=== PATIENT | female | born 1940 | race Caucasian/White ===

== ENCOUNTER 2018-09-05 16:18 | Inpatient (IN) | payer MEDICARE | END 2018-09-09 13:00 | disposition home health service (06) | LOC: ER 16:18 → MED 3N 09-07 19:02 → ED HOLD 19:37 → PCU 3S 20:50 | PROC: 0JH606Z Insertion of Pacemaker, Dual Chamber into Chest Subcutaneous Tissue and Fascia, Open Approach (ICD-10-PCS; principal; 2018-09-06 15:02) | PROC: 02H63JZ Insertion of Pacemaker Lead into Right Atrium, Percutaneous Approach (ICD-10-PCS; 2018-09-06 15:02) | PROC: 02HK3JZ Insertion of Pacemaker Lead into Right Ventricle, Percutaneous Approach (ICD-10-PCS; 2018-09-06 15:02) | DX: R00.1 Bradycardia, unspecified (principal); I50.23 Acute on chronic systolic (congestive) heart failure ==